=== PATIENT | male | born 1975 | race Caucasian/White ===

== ENCOUNTER 2017-08-16 20:58 | Emergency (ER) | payer OTHER ==
[~2017-08-16] VITALS: Ht 195.6 cm; Wt 156.5 kg
[2017-08-16] MEDS ORDERED: ZOCOR40 MG PO (21:16)
[2017-08-16] MEDS ORDERED: NORCO 5-325 TA1 EACH PO (21:17)
[2017-08-16] MEDS ORDERED: COZAAR100 MG PO (21:18)
[2017-08-16] MEDS ORDERED: MELATONIN3 MG PO (21:18)
== END 2017-08-16 22:10 | disposition home or self-care (01) ==
LOC: ED 20:58
PROC: 0RSWXZZ Reposition Right Finger Phalangeal Joint, External Approach (ICD-10-PCS; principal; 2017-08-16)
DX: S63.284A Dislocation of proximal interphalangeal joint of right ring finger, initial encounter (principal); I10 Essential (primary) hypertension; E78.5 Hyperlipidemia, unspecified; E66.9 Obesity, unspecified; Z79.899 Other long term (current) drug therapy; Z87.891 Personal history of nicotine dependence; W23.0XXA Caught, crushed, jammed, or pinched between moving objects, initial encounter; Y93.67 Activity, basketball
CPT/HCPCS: 26770; 73140; 99283